=== PATIENT | female | born 1980 | race Hispanic/Latino ===

== ENCOUNTER 2017-07-01 13:19 | Emergency (ER) | payer SELFPAY ==
--- NOTE | 2017-07-01 14:26 | RAD ---
CHEST 1 VIEW: Date: 07/01/17 HISTORY: Emergency exam. Cough. COMPARISON: Chest 2 views dated 08/06/11. FINDINGS: Lungs are clear. No pneumothorax or effusion. Cardiac silhouette and mediastinal contours are within normal limits. IMPRESSION: No acute intrathoracic abnormality. POS: [facility]
== END 2017-07-01 15:27 | disposition home or self-care (01) ==
LOC: ERS 13:19
DX: J20.9 Acute bronchitis, unspecified (principal); F17.210 Nicotine dependence, cigarettes, uncomplicated
CPT/HCPCS: 71045; 87804; 94640; J7620

== ENCOUNTER 2018-03-28 13:48 | Emergency (ER) | payer SELFPAY | END 2018-03-28 18:15 | disposition home or self-care (01) | LOC: ERS 13:48 | DX: N60.11 Diffuse cystic mastopathy of right breast (principal); F17.210 Nicotine dependence, cigarettes, uncomplicated | CPT/HCPCS: 99283 ==

== ENCOUNTER 2018-10-10 09:39 | Emergency (ER) | payer SELFPAY ==
[2018-10-10 10:36] LABS: ALT (SGPT) 11 U/L (8-55); AST (SGOT) 10 U/L (5-34); Albumin 4.2 g/dL (3.5-5.0); Alkaline Phosphatase 61 U/L (40-150); Anion Gap 12 mmol/L (10-20); BUN (Urea Nitrogen) 9 mg/dL (7.0-18.7); Bilirubin, Total 0.9 mg/dL (0.2-1.2); Calc. Creatinine Clearance 0 mL/min (70-130); Calcium 9.3 mg/dL (7.8-10.44); Carbon Dioxide 25 mmol/L (22-29); Chloride 104 mmol/L (98-107); Estimated GFR-MDRD 89; Globulin 3.1 g/dL (2.4-3.5); Glucose 90 mg/dL (70-105); Lipase 25 U/L (8-78); Potassium 4.1 mmol/L (3.5-5.1); Protein, Total 7.3 g/dL (6.0-8.3); Sodium 137 mmol/L (136-145)
[2018-10-10 11:04] LABS: #Eosinphils 0.1 thou/uL (0.0-0.7); #Lymphocytes 1.6 thou/uL (1.20-3.40); #Monocytes 0.7 thou/uL (0.11-0.59); #Neutrophils 4.6 thou/uL (1.40-6.50); %Basophils 0.7 % (0.0-1.0); %Eosinophils 0.9 % (0.0-10.0); %Lymphocytes 23.1 % (21.0-51.0); %Monocytes 9.7 % (0.0-10.0); %Neutrophils 65.6 % (42.0-75.0); Hemoglobin 12.8 g/dL (12.0-16.0); MDiff Complete? YES; Mean Corpuscular HGB CONC 32.5 g/dL (32.0-36.0); Mean Corpuscular Hemoglobin 26.9 pg (27.0-31.0); Mean Corpuscular Volume 82.8 fL (78.0-98.0); Mean Platelet Volume 10.4 fL (7.4-10.4); Platelet Clumps MARKED; Platelet Morphology Comment PLT clumps seen-ADEQ; RBC Distribution Width 15.1 % (11.5-14.5); RBC Morphology Normal; Red Blood Cell (RBC) Count 4.75 mill/uL (4.20-5.40); White Blood Cell (WBC) Count 7.1 thou/uL (4.8-10.8)
[2018-10-10 11:18] LABS: Bilirubin Negative (Negative); Blood, Urine Negative (Negative); Clarity CLEAR (Clear); Glucose, Urine (Dipstick) Negative (Negative); Leukocyte Small (Negative); Nitrite Negative (Negative); Protein, Urine (Dipstick) Negative (Neg-Trace); Specific Gravity, Urine 1.019 (1.002-1.036)
[2018-10-10 11:20] LABS: Bacteria/HPF None Seen HPF (None Seen); Hyaline Casts/LPF 4-6 HYALINE CAST LPF (0-3 Hyaline); Pathc Cast-AUWi Flag 0.13 (0-2.49); Squamous Epithelial 0-3 HPF (0-3)
--- NOTE | 2018-10-11 07:35 | ULT ---
EXAM: US Gallbladder RUQ CLINICAL HISTORY: Right upper quadrant pain. COMPARISON: None. FINDINGS: Pancreas: Obscured by bowel gas Liver:Normal echotexture. No hepatic masses or intrahepatic biliary dilatation. Contour of the hepati c margins maintained. Right hepatic lobe measures 16.4 cm. Gallbladder: No sonographic evidence of cholelithiasis, gallbladder wall thickening or pericholecysti c fluid Betancourt's sign:Negative Bile ducts: Common bile duct diameter is 0.22 cm. Main portal vein is patent Right kidney: No hydronephrosis Right kidney measuring 9.9 x 4.5 x 4.5 cm in length. IMPRESSION: Unremarkable exam.
== END 2018-10-10 12:56 | disposition home or self-care (01) ==
LOC: ERS 09:39
DX: R10.13 Epigastric pain (principal); F17.210 Nicotine dependence, cigarettes, uncomplicated
CPT/HCPCS: 36415; 76705; 80053; 81003; 81015; 83690; 85025

== ENCOUNTER 2019-06-07 18:27 | Emergency (ER) | payer SELFPAY | END 2019-06-07 19:30 | disposition home or self-care (01) | LOC: ERS 18:27 | DX: K02.9 Dental caries, unspecified (principal); I10 Essential (primary) hypertension; G43.909 Migraine, unspecified, not intractable, without status migrainosus; F17.210 Nicotine dependence, cigarettes, uncomplicated | CPT/HCPCS: 99282 ==

== ENCOUNTER 2021-01-28 09:42 | Emergency (ER) | payer OTHER, SELFPAY ==
[2021-01-28] MEDS ORDERED: Ondansetron ODT 4 MG TAB ONE (11:55)
[2021-01-28 18:34] LABS: SARS-CoV-2 PCR by NAA DETECTED (NotDetected)
== END 2021-01-28 12:49 | disposition home or self-care (01) ==
LOC: ERS 09:42
DX: U07.1 COVID-19 (principal); R11.2 Nausea with vomiting, unspecified; F17.210 Nicotine dependence, cigarettes, uncomplicated
CPT/HCPCS: 71045; 93005; Q0162; U0003; U0005

== ENCOUNTER 2021-05-08 09:12 | Emergency (ER) | payer OTHER, SELFPAY ==
[2021-05-08] MEDS ORDERED: Ketorolac Tromethamine 30 MG/ML VIAL ONE (10:32)
[2021-05-08] MEDS ORDERED: Metoclopramide HCl 10 MG/2 ML VIAL ONE (10:32)
[2021-05-08] MEDS ORDERED: diphenhydrAMINE 25 MG CAP ONE (10:32)
[2021-05-08] MEDS ORDERED: diphenhydrAMINE 50 MG/ML VIAL ONE (10:32)
== END 2021-05-08 11:50 | disposition home or self-care (01) ==
LOC: ERS 09:12
DX: R51.9 Headache, unspecified (principal); H53.142 Visual discomfort, left eye; F17.210 Nicotine dependence, cigarettes, uncomplicated; Z79.899 Other long term (current) drug therapy
CPT/HCPCS: 96365; 96375; J1200; J1885; J2765

== ENCOUNTER 2022-09-01 11:17 | Emergency (ER) | payer SELFPAY ==
[2022-09-01] MEDS ORDERED: Proparacaine 0.5% Opth 15 ML BOT ONE (12:30)
[2022-09-01] MEDS ORDERED: Fluorescein Opthalmic Strip ONE (12:30)
== END 2022-09-01 13:10 | disposition home or self-care (01) ==
LOC: ERS 11:17
DX: S05.01XA Injury of conjunctiva and corneal abrasion without foreign body, right eye, initial encounter (principal); I10 Essential (primary) hypertension; F17.210 Nicotine dependence, cigarettes, uncomplicated; W55.03XA Scratched by cat, initial encounter
CPT/HCPCS: 99283

== ENCOUNTER 2022-09-07 17:35 | Emergency (ER) | payer SELFPAY ==
[2022-09-07] MEDS ORDERED: Proparacaine 0.5% Opth 15 ML BOT ONE (17:48)
[2022-09-07] MEDS ORDERED: Fluorescein Opthalmic Strip ONE (17:48)
== END 2022-09-07 18:11 | disposition home or self-care (01) ==
LOC: ERS 17:35
DX: L03.818 Cellulitis of other sites (principal); I10 Essential (primary) hypertension
CPT/HCPCS: 99282

== ENCOUNTER 2022-09-21 14:26 | Emergency (ER) | payer SELFPAY ==
[2022-09-21 15:04] LABS: #Eosinphils 0.3 thou/uL (0.0-0.7); #Lymphocytes 1.1 thou/uL (1.20-3.40); #Monocytes 0.9 thou/uL (0.11-0.59); #Neutrophils 5.6 thou/uL (1.40-6.50); %Basophils 0.2 % (0.0-1.0); %Eosinophils 4.1 % (0.0-10.0); %Lymphocytes 14.3 % (21.0-51.0); %Monocytes 10.8 % (0.0-10.0); %Neutrophils 70.7 % (42.0-75.0); Hemoglobin 14.5 g/dL (12.0-16.0); Mean Corpuscular HGB CONC 31.2 g/dL (32.0-36.0); Mean Corpuscular Volume 86.7 fl (78.0-98.0); Mean Platelet Volume 10.4 fL (7.4-10.4); Platelet Count 148 10x3/uL (130-400); RBC Distribution Width 13.9 % (11.5-14.5); Red Blood Cell (RBC) Count 5.35 mill/uL (4.20-5.40); White Blood Cell (WBC) Count 7.9 10x3/uL (4.8-10.8)
[2022-09-21 15:23] LABS: Bacteria/HPF None Seen HPF (None Seen); Bilirubin Negative (Negative); Blood, Urine 3+ (Negative); Clarity Turbid (Clear); Glucose, Urine (Dipstick) 30 mg/dL (Negative); Ketone, Urine Trace mg/dL (Negative); Leukocyte 25 Leu/uL (Negative); Nitrite Negative (Negative); Protein, Urine (Dipstick) 100 mg/dL (Neg-Trace); RBC/HPF Greater than 50 HPF (0-3); Urobilinogen 3 mg/dL (Less than 2)
[2022-09-21 15:23] LABS: BHCG - Serum Negative (NEGATIVE); Pregs Control Background? CLEAR/WHITE (CLR/WHITE); Pregs Control Bar Appear? YES (CONTROL BAR)
[2022-09-21 15:26] LABS: ALT (SGPT) 9 U/L (8-55); AST (SGOT) 13 U/L (5-34); Albumin 4.4 g/dL (3.5-5.0); Alkaline Phosphatase 63 U/L (40-110); Anion Gap 15 mmol/L (10-20); BUN (Urea Nitrogen) 10 mg/dL (7.0-18.7); Calc. Creatinine Clearance 0 mL/min (70-130); Calcium 9.5 mg/dL (7.8-10.44); Carbon Dioxide 28 mmol/L (22-29); Chloride 98 mmol/L (98-107); Estimated GFR 96; Globulin 3.3 g/dL (2.4-3.5); Glucose 113 mg/dL (70-105); Lipase 10 U/L (8-78); Potassium 3.4 mmol/L (3.5-5.1); Protein, Total 7.7 g/dL (6.0-8.3); Sodium 138 mmol/L (136-145)
[2022-09-21] MEDS ORDERED: Ondansetron PF 4 MG/2 ML Vial ONE (15:47)
[2022-09-21] MEDS ORDERED: Sucralfate 1 GM/10 ML UDCUP ONE (16:15)
[2022-09-21] MEDS ORDERED: Famotidine 20 MG TAB ONE (16:15)
[2022-09-21] MEDS ORDERED: Erythromycin Base 0.5% Oint 1 GM TUBE ONE (17:33)
== END 2022-09-21 17:43 | disposition home or self-care (01) ==
LOC: ERS 14:26
DX: K29.70 Gastritis, unspecified, without bleeding (principal); I10 Essential (primary) hypertension; F17.210 Nicotine dependence, cigarettes, uncomplicated
CPT/HCPCS: 36415; 76705; 80053; 81003; 81015; 83690; 84703; 85025; 96374; J2405

== ENCOUNTER 2023-02-09 15:44 | Emergency (ER) | payer SELFPAY | END 2023-02-09 17:33 | disposition home or self-care (01) | LOC: ERS 15:44 | DX: H00.011 Hordeolum externum right upper eyelid (principal); H00.014 Hordeolum externum left upper eyelid; H01.004 Unspecified blepharitis left upper eyelid; H01.001 Unspecified blepharitis right upper eyelid; I10 Essential (primary) hypertension; F17.210 Nicotine dependence, cigarettes, uncomplicated | CPT/HCPCS: 99283 ==

== ENCOUNTER 2023-03-21 16:05 | Emergency (ER) | payer BC, SELFPAY ==
[2023-03-21] MEDS ORDERED: diphenhydrAMINE 50 MG/ML VIAL ONE (16:29)
[2023-03-21] MEDS ORDERED: Dexamethasone 10 MG/ML VIAL ONE (16:29)
[2023-03-21] MEDS ORDERED: Acetaminophen 500 MG TAB ONE (16:29)
[2023-03-21] MEDS ORDERED: Ketorolac Tromethamine 30 MG/ML VIAL ONE (16:29)
[2023-03-21] MEDS ORDERED: Prochlorperazine 10 MG/2 ML VIAL ONE (16:29)
[2023-03-21 16:45] LABS: #Eosinphils 0.1 thou/uL (0.0-0.7); #Monocytes 0.6 thou/uL (0.11-0.59); #Neutrophils 5.3 thou/uL (1.40-6.50); %Basophils 0.5 % (0.0-1.0); %Lymphocytes 25.2 % (21.0-51.0); %Monocytes 7.1 % (0.0-10.0); %Neutrophils 65.7 % (42.0-75.0); Hematocrit 42.1 % (36.0-47.0); Hemoglobin 13.5 g/dL (12.0-16.0); Mean Corpuscular HGB CONC 32.1 g/dL (32.0-36.0); Mean Corpuscular Hemoglobin 27.8 pg (27.0-31.0); Mean Corpuscular Volume 86.8 fl (78.0-98.0); Mean Platelet Volume 11.4 fL (7.4-10.4); Platelet Count 202 10x3/uL (130-400); RBC Distribution Width 14.6 % (11.5-14.5); Red Blood Cell (RBC) Count 4.85 mill/uL (4.20-5.40); White Blood Cell (WBC) Count 8.1 10x3/uL (4.8-10.8)
[2023-03-21 16:53] LABS: BHCG - Serum Negative (NEGATIVE); Pregs Control Background? CLEAR/WHITE (CLR/WHITE); Pregs Control Bar Appear? YES (CONTROL BAR)
[2023-03-21 17:07] LABS: ALT (SGPT) 15 U/L (8-55); AST (SGOT) 13 U/L (5-34); Albumin 4.7 g/dL (3.5-5.0); Alkaline Phosphatase 65 U/L (40-110); Anion Gap 13 mmol/L (10-20); BUN (Urea Nitrogen) 11 mg/dL (7.0-18.7); Bilirubin, Total 0.7 mg/dL (0.2-1.2); Calc. Creatinine Clearance 0 mL/min (70-130); Calcium 9.9 mg/dL (7.8-10.44); Carbon Dioxide 26 mmol/L (22-29); Chloride 103 mmol/L (98-107); Estimated GFR 89; Globulin 2.9 g/dL (2.4-3.5); Glucose 131 mg/dL (70-105); Potassium 3.9 mmol/L (3.5-5.1); Protein, Total 7.6 g/dL (6.0-8.3); Sodium 138 mmol/L (136-145)
== END 2023-03-21 17:50 | disposition home or self-care (01) ==
LOC: ERS 16:05
DX: R51.9 Headache, unspecified (principal); I10 Essential (primary) hypertension; F17.210 Nicotine dependence, cigarettes, uncomplicated
CPT/HCPCS: 36415; 80053; 84703; 85025; 96374; 96375; J0780; J1100; J1200; J1885

== ENCOUNTER 2023-05-14 17:04 | Emergency (ER) | payer SELFPAY ==
[2023-05-14] MEDS ORDERED: Acetaminophen 325 MG TAB ONE (18:29)
[2023-05-14] MEDS ORDERED: Ibuprofen 200 MG TAB ONE (18:29)
[2023-05-14 19:38] LABS: SARS-CoV-2 NAA Rapid Test Not Detected (NotDetected)
== END 2023-05-14 19:47 | disposition home or self-care (01) ==
LOC: ERS 17:04
DX: J10.1 Influenza due to other identified influenza virus with other respiratory manifestations (principal); I10 Essential (primary) hypertension; F17.210 Nicotine dependence, cigarettes, uncomplicated; Z20.822 Contact with and (suspected) exposure to COVID-19
CPT/HCPCS: 99283

== ENCOUNTER 2024-02-25 10:09 | Emergency (ER) | payer BC, OTHER | END 2024-02-25 11:35 | disposition home or self-care (01) | LOC: ERS 10:09 | DX: H00.021 Hordeolum internum right upper eyelid (principal) | CPT/HCPCS: 99282 ==

== ENCOUNTER 2024-05-22 19:56 | Emergency (ER) | payer BC, OTHER ==
[2024-05-22 20:22] LABS: Bilirubin Negative (Negative); Blood, Urine Negative (Negative); CAUTI Indications for Culture Pelvic or flank pain; Clarity Turbid (Clear); Glucose, Urine (Dipstick) 30 mg/dL (Negative); Ketone, Urine Trace mg/dL (Negative); Leukocyte 75 Leu/uL (Negative); Nitrite Negative (Negative); Pregnancy Test - Urine (BHCG) Negative (Negative); Pregu Control Background? CLEAR/WHITE (CLR/WHITE); Pregu Control Bar Appear? YES (CONTROL BAR); Protein, Urine (Dipstick) 50 mg/dL (Neg-Trace); RBC/HPF 0-3 HPF (0-3); Specific Gravity 1.027 (1.002-1.036); Specific Gravity, Urine 1.027 (1.002-1.036); Urobilinogen 6 mg/dL (Less than 2)
[2024-05-22 20:23] LABS: Bacteria/HPF 1+ HPF (None Seen)
[2024-05-22 20:24] LABS: Urine Culture Reflex No No
[2024-05-22] MEDS ORDERED: Ketorolac Tromethamine 30 MG (1 mL) VIAL ONE (20:41)
[2024-05-22] MEDS ORDERED: diphenhydrAMINE 50 MG/ML VIAL ONE (20:41)
[2024-05-22] MEDS ORDERED: Dexamethasone 10 MG/ML VIAL ONE (20:41)
[2024-05-22] MEDS ORDERED: Acetaminophen 500 MG TAB ONE (20:41)
[2024-05-22] MEDS ORDERED: Prochlorperazine 10 MG/2 ML VIAL ONE (20:58)
== END 2024-05-22 22:50 | disposition home or self-care (01) ==
LOC: ERS 19:56
DX: G43.709 Chronic migraine without aura, not intractable, without status migrainosus (principal); Z55.6 Problems related to health literacy
CPT/HCPCS: 81001; 81025; 96365; 96367; 96375; J0780; J1100; J1200; J1885

== ENCOUNTER 2025-05-30 19:06 | Emergency (ER) | payer OTHER ==
[2025-05-30] MEDS ORDERED: Dexamethasone 10 MG/ML VIAL ONE (20:42)
[2025-05-30] MEDS ORDERED: Ketorolac Tromethamine 30 MG (1 mL) VIAL ONE (20:42)
[2025-05-30] MEDS ORDERED: Metoclopramide HCl 10 MG (2 mL) VIAL ONE (20:42)
[2025-05-30] MEDS ORDERED: diphenhydrAMINE 50 MG/ML VIAL ONE (20:42)
[2025-05-30 21:01] LABS: #Basophils 0.04 10x3/uL (0.0-0.2); #Eosinophils 0.04 10x3/uL (0.0-0.7); #Monocytes 0.65 10x3/uL (0.11-0.59); #Neutrophils 6.33 10x3/uL (1.40-6.50); %Basophils 0.5 % (0.0-1.0); %Eosinophils 0.5 % (0.0-10.0); %Lymphocytes 19.8 % (21.0-51.0); %Monocytes 7.4 % (0.0-10.0); %Neutrophils 71.5 % (42.0-75.0); Hematocrit 40.1 % (36.0-47.0); Hemoglobin 12.9 g/dL (12.0-16.0); Mean Corpuscular Hemoglobin 26.1 pg (27.0-31.0); Mean Corpuscular Volume 81.0 fL (78.0-98.0); Platelet Count 199 10x3/uL (130-400); Red Blood Cell (RBC) Count 4.95 mill/uL (4.20-5.40); White Blood Cell (WBC) Count 8.84 10x3/uL (4.8-10.8)
[2025-05-30 21:04] LABS: ALT (SGPT) 8 U/L (Less than 34); AST (SGOT) 15 U/L (11-34); Albumin 4.1 g/dL (3.1-4.5); Alkaline Phosphatase 64 U/L (40-110); Anion Gap 18 mmol/L (10-20); BUN (Urea Nitrogen) 7 mg/dL (7.0-18.7); Bilirubin, Total 0.9 mg/dL (0.3-1.2); Calc. Creatinine Clearance 0 mL/min (70-130); Calcium 9.4 mg/dL (7.8-10.44); Carbon Dioxide 23 mmol/L (22-29); Chloride 103 mmol/L (98-107); Globulin 3.3 g/dL (2.4-3.5); Glucose 104 mg/dL (70-105); Potassium 3.8 mmol/L (3.5-5.1); Sodium 140 mmol/L (136-145)
== END 2025-05-30 21:42 | disposition home or self-care (01) ==
LOC: ERS 19:06
DX: G43.909 Migraine, unspecified, not intractable, without status migrainosus (principal)
CPT/HCPCS: 80053; 85025; 96365; 96375; J1100; J1200; J1885; J2765